=== PATIENT | female | born 1960 | race Caucasian/White ===

== ENCOUNTER → 2020-03-31 15:08 | Outpatient (CLI) | payer MEDICARE, MEDICAID, SELFPAY ==
[2020-03-31 17:42] LABS: Absolute Lymphocyte Count 1.35 X10^3/uL (0.83-4.51); Absolute Neutrophil Count 4.6 X10^3/uL (2.0-7.7); Eosinophil# 0.03 X10^3/uL; Eosinophils% 0.5 % (0-5); Hematocrit 43.5 % (37-47); Hemoglobin 12.9 g/dL (12.0-15.0); Lymphocyte # 1.35 X10^3/ul (4.0); Lymphocyte % 20.7 % (19-41); Mean Corp Hgb Conc 29.7 g/dL (32-36); Mean Corpuscular Hgb 24.2 pg (27.0-32.0); Mean Corpuscular Volume 81.5 fL (81-99); Mean Platelet Vol. 9.3 fl (6.2-12.0); Monocyte# 0.55 X10^3/uL; Monocyte% 8.4 % (0-10); NRBC Flagged by Analyzer 0 % (0-5); Neutrophil # 4.57 X10^3/uL (2.7-7.7); Neutrophil % 70.2 % (47-70); Platelet Count 269 K/mm3 (150-450); RBC Distribution Width CV 15.1 % (11.6-14.6); RBC Distribution Width SD 44.3 fl (35.1-43.9); Red Blood Count 5.34 M/mm3 (4.2-5.4); White Blood Count 6.5 K/mm3 (4.4-11.0)
[2020-03-31 18:23] LABS: ALB/GLOB Ratio 1.6 RATIO (0.9-2.4); AST(SGOT) 9 U/L (15-37); Alanine Aminotransfer ALT/SGPT < 6 U/L (13-56); Albumin, Serum 4.1 g/dL (3.2-5.0); Alkaline Phosphatase 65 U/L (45-117); Anion Gap 6 (5-15); BUN 29 mg/dL (7-18); BUN/Creat Ratio 27.4 RATIO (10-20); Chloride 106 mmol/L (98-107); Creatinine, Serum 1.06 mg/dL (0.55-1.02); EST Glomerular Filtration Rate 56 mL/min (>60); Est Glom Filt Rate - Afr Amer 68 mL/min (>60); Globulin 2.6 g/dL (2.2-4.2); Glucose 94 mg/dL (74-106); Potassium 4.2 mmol/L (3.5-5.1); Protein, Total 6.7 g/dL (6.4-8.2); Sodium Level 139 mmol/L (136-145)
== END ==
PROVIDERS: PCP Family Medicine; Visit Provider Family Medicine
DX: Z01.818 Encounter for other preprocedural examination (principal)
CPT/HCPCS: 36415; 80053; 85025

== ENCOUNTER 2020-04-07 06:02 | Day surgery (SDC) | payer MEDICARE, MEDICAID, SELFPAY ==
[2020-04-07] VITALS (8 sets, daily range): BP systolic 103–154; BP diastolic 61–89; PULSE 63–86; RESP 14–16; TEMP 36.1–36.6; O2SAT 97–100; BMI 30.7
[2020-04-07] MEDS: Lactated Ringers 1,000 ML 80 ML IV ×2 (07:09→12:11)
--- NOTE | 2020-04-07 07:30 | RAD_ITS ---
STUDY: X-RAY - RIGHT FOOT CLINICAL: Female, 59 years old. Bunion correction with fusion of 1st metatarsal, 2.38 mGy, 128.8 sec fluoro time TECHNIQUE: 2 view(s) of the foot. COMPARISON: None. FINDINGS: Intraoperative imaging provided for fusion at the first tarsal metatarsal joint as well as bunion surgery with the osteotomy and varus metallic clip fixation of the proximal phalanx of the great toe. RAD/Foot 2 Views IMPRESSION: Intraoperative imaging provided for fusion of the first tarsometatarsal joint as well as bunionectomy Electronically Signed: Erik Ward, at 11:06 EDT , Service support ,
--- NOTE | 2020-04-07 10:42 | DCINST_ITS ---
Discharge Diet: No Restrictions Discharge Activity: Use Walker, Use Crutches, - - use knee roller Weight Bearing Status: No weight bearing - right Keep extremity elevated above heart level: Right Leg Call your doctor if your incision/area has: Continuous Slow Oozing, Sudden Increased Bleeding, Increased Pain/ Swelling, Increased Redness, Foul Smelling Discharge, Swelling at the incision site Call your doctor if you observe: Fever of 101 or Higher, Calf discomfort, Uncontrolled pain Cleanse incision/area with: Keep Dressing Clean & Dry Allergies/Adverse Reactions: Allergies bee pollen Allergy (Verified 04/05/20 10:28) Anaphylaxis Penicillins Allergy (Verified 04/05/20 10:28) Swelling prochlorperazine [From Compazine] Allergy (Verified 04/05/20 10:28) NEEDS FOLLOW-UP Medications to take at Discharge Aripiprazole [Abilify] 15 mg PO DAILY 04/05/20 Carbidopa/Levodopa 25/100 [Sinemet] 2 tab PO 4X/DAY 04/05/20 Clonazepam [Klonopin] 1 mg PO QHS 04/05/20 Entacapone [Comtan] 200 mg PO DAILY 04/05/20 Fluoxetine [Prozac] 20 mg PO DAILY 04/05/20 Gabapentin [Neurontin] 300 mg PO 4X/DAY 04/05/20 Gemfibrozil [Lopid] 600 mg PO QHS 04/05/20 Hydrochlorothiazide [Hctz] 25 mg PO DAILY 04/05/20 Hydroxyzine HCl 25 mg PO PRN PRN 04/05/20 Lamotrigine [Lamictal] 100 mg PO BID 04/05/20 Naproxen [Naprosyn] 250 mg PO TID 04/05/20 Pimavanserin Tartrate [Nuplazid] 34 mg PO DAILY 04/05/20 Rasagiline Mesylate [Azilect] 0.5 mg PO QHS 04/05/20 Rotigotine [Neupro] 1 patch TRANSDERM. DAILY 04/05/20 Trihexyphenidyl HCl 1 mg PO TID 04/05/20 Hydrocodone/Acetaminophen [Hydrocodon-Acetaminophen 5-325] 1 tab PO Q6H PRN PRN 7 Days #28 tab 04/06/20 Ondansetron HCl [Zofran] 4 mg PO TID PRN PRN 4 Days #10 tab 04/06/20 Primary Care Physician: Ivanna Vences [Primary Care Provider] - Test Results: Test results from this visit will be discussed in further detail at your follow- up appointment, if applicable. Please Follow Up With: Vanessa Tamayo DPM When: 1 week. call [phone] sooner if questions or concerns Proposed Discharge Date: 04/07/20
--- NOTE | 2020-04-07 10:47 | OP.PCM_ITS ---
Problem List (1) Right foot pain Status: Acute (2) Hallux valgus (acquired), right foot Status: Acute Report of Operation Date of Procedure: 04/07/20 Pre-Operative Diagnosis: symptomatic hallux valgus, right Post-Operative Diagnosis: symptomatic hallux valgus, right Surgery/Procedure Performed:: Right foot first metatarsocuneiform arthrodesis bunionectomy correction with additional Hans osteotomy with internal fixation Description of Surgical Findings:: Hemostasis: Well-padded pneumatic right thigh tourniquet 305 mmHg, 120 minutes Materials: 1 plantar Arthrex Lapidus plate, one 3.5 cortical screw, three 3.5 locking screws, 2 cannulated 3.5 partially-threaded screws, 1 staple, 2-0 and 3- 0 Vicryl, 4-0 nylon Complications: None Specimens: None The patient tolerated the procedure and anesthesia well. She was transported to the PACU with vital signs stable and vascular status intact to the right lower extremity. Postoperative x-rays were obtained prior to leaving the operating room with correction of hallux abducto valgus deformity with internal fixation. There were no acute injuries noted. There is reduced lateral hallux deviation and intermetatarsal space. Postoperative orders were entered and she will be discharged home later today. renal medicine specialist: Rema Tamayo DPM Type of Anesthesia:: General, Local - Postoperative: One-to-one mixture of 1% lidocaine plain and 0.5% Marcaine plain administered in typical right ankle block fashion, 20 cc Specimen's removed: None Estimated Blood Loss (mL): <150 mL Description of Procedure: Indications: This 59-year-old female with significant past medical history of anxiety, depresion, hypertension, bipolar disorder, parkinson's disease has complained of progressive right foot pain in which she is unable to perform her daily activities and has significant pain. She has failed conservative care including shoe gear modification, NSAIDs, home exercise program, anti-inflammatory, and offloading. Preoperative x-rays demonstrate increased intermetatarsal angle, lateral hallux deviation, prominent first metatarsal head with hypertrophic changes. Clinically she has pain palpation to the bunion site and hypermobility of the first ray. She also previously had subsecond metatarsal head clinical pain which was relieved when she was able to tolerate wearing a toe spacer. It is noted she was not able to tolerate wearing a toe spacer for more than a couple of days or for long-term duration. The preoperative indication, planned procedure, possible benefits, risk, complications, and anticipated healing time management were discussed in detail with patient. She understands and elects to proceed with surgery at this time. Informed surgical consent and limb were signed. She understands risk and complications include but not limited to following: Pain, swelling, scarring, need for further surgery, hardware failure, recurrence, blood clot, allergic reaction, chronic pain, over or under correction, loss of limb, function, life, loss of sensation. She understands COVID-19 is a current situation and her pain is preventing her from performing her daily activities. She understands the inherent risks with the virus being present in the community and understands significant precautions are being taken to prevent communicable spread during her hospital session. She therefore elects to proceed forward with the procedure at this time. Preoperative clearance with Dr. Ho including history and physical exam was also reviewed. She also did not have any gross abnormalities with her preoperative diagnostic data including CBC, CMP, and EKG. I answered all of her questions. Procedure in detail: The patient was transported to the operating room via cart and placed on the operating table in the supine position. Final verification the patient, surgery, limb designation was performed via the timeout procedure. IV antibiotics were administered preoperatively. The anesthesia team initiated general anesthesia. A well padded right ankle tourniquet was placed in a well padded manner. The right lower extremity was prepped and draped in the usual aseptic manner. An Esmarch bandage was used to exsanguinate the right limb and surgery began the following: Attention was first directed at the medial aspect of the first metatarsal cuneiform articulation area in which a medial incision was made through the skin. Blunt dissection was performed down to the interface between the abductor hallucis muscle belly and plantar first metatarsal. Care was taken to identify, protect, and retract all neurovascular structures at this point and throughout the remainder of surgery. The desired interface was identified and carefully dissected. The first metatarsocuneiform articulation was identified clinically and confirmed with intraoperative fluoroscopy. A 15 blade, osteotomes, and curettes were used to denude the articular surface down to bleeding healthy subchondral bone in the remaining bone surfaces were mobilized to allow for correction. A k-wire and tenaculum were placed with the first metatarsal now with varus rotation correction achieved. Sesamoid reduction, decreased first intermetatarsal angle, and [id number] approximation was confirmed with intraoperative fluoroscopy. A plantar Arthrex Lapidus plate was fashioned and temporary held in place with wires and BB taks. The plate was secured distally prior to compression screw application. Care was taken to remove all temporary fixation while the compression was applied. An additional cannulated 3.5 screw was applied across the arthrodesis site as well with standard AO fixation technique to aid in solid fixation and deformity correction. Lastly, the plate was secured proximally and the unit was clinically and radiographically stressed and appeared to be stable as one solid unit with maintained deformity correction. The reduction was maintained and all screws and hardware placement maintained the proper placement and desired trajectory. Next, attention was directed to the first metatarsophalangeal joint in which the remaining bunion deformity was evaluated. The previous incision was extended distally. Again blunt dissection was performed and care was taken to avoid neurovascular structures. A lateral release was performed with release of the abductor hallucis tendon and superficial intermetatarsal ligament structures. The deformity at this level is now reducible at this time and additional release was not deemed necessary. The capsule was identified and this was incised with a 15 blade was carefully dissected off of the lower aspect of the first metatarsal head and proximal phalanx. A sagittal saw was used to resect the hypertrophic medial dorsal first metatarsal head eminence taking care to preserve the sagittal sulcus. This was successfully performed and smoothed. Next additional reflection of soft tissue off of the base of the proximal phalanx of the hallux was performed in preparation to perform an Hans bone cut which was also deemed clinically necessary at this time. The joint was smooth and gliding and there was no visualized evidence of osteochondral defect of the first metatarsal head. An Hans osteotomy was next performed via sagittal saw at the metaphyseal diaphyseal junction proximal phalanx cortex of the hallux. This was reduced and a staple was applied for fixation. This allowed additional correction of the hallux to be placed in a more rectus toe position; there was no longer pressure being applied to the adjacent second toe. Next, a capsulorrhaphy was used for tendon balancing procedure to maintain this hallux position. The tourniquet was deflated at this time and brisk capillary refill time was noted to all digits of the right foot. No pulsatile bleeding was noted. Deep layered closure was achieved to all surgical sites with Vicryl taking care to maintain a balanced tissue closure. The skin was next reapproximated with nylon with horizontal simple suture technique. Clinically the fixation was solid and the deformities were reduced. After procedure: The patient tolerated the procedure anesthesia well. She was transferred to the PACU with vital signs stable vascular status intact to the right lower extremity. She was transferred home with the assistance of her friend is also investigating this afternoon. She was advised to maintain a strict nonweigh tbearing status. Ice and elevate for pain inflammation control. She was advised to keep her splint and dressing clean, dry, and intact until follow-up next week. She has assistive devices to help her maintain a nonweightbearing status. Postoperative x-rays were reviewed as noted. She will follow-up with the [facility] next week. Vanessa Tamayo DPM, [facility] Grafts/Implants Used: arthrex - Complications none - Admit VTE Documentation VTE Present on Admission: No VTE Mechan Device Prophylaxis: SCD's VTE Pharm Prophylaxis ordered?: No Reason prophylaxis not ordered:: Procedure Not Indicated
[2020-04-07] MEDS: Bupivacaine Mpf 0.5% 30 ML VIAL (10:53)
--- NOTE | 2020-04-07 11:19 | RAD_ITS ---
STUDY: X-RAY - RIGHT FOOT CLINICAL: Female, 59 years old. Post op bunionectomy TECHNIQUE: 3 view(s) of the foot. COMPARISON: Comparison is made with prior intraoperative imaging. FINDINGS: Normal talus, calcaneus, and tarsal bones. Normal visualized subtalar, talonavicular, calcaneocuboid, tarsal and tarsometatarsal articulations. The patient is status post fusion of the first tarsometatarsal joint as well as bunionectomy with osteotomy of the midportion of the proximal phalanx of the great toe. Normal second through fifth metatarsophalangeal joints. Normal interphalangeal joints and phalanges of the lesser toes. Postoperative soft tissue changes. RAD/Foot min 3 Views IMPRESSION: Status post fusion at the first tarsal metatarsal joint as well as bunionectomy. Electronically Signed: Erik Ward, at 12:08 EDT , Service support ,
[2020-04-07] MEDS: Ketorolac 30 MG/ML Syringe IV (11:20)
== END 2020-04-07 13:16 | disposition home or self-care (01) ==
LOC: SDC 06:06 → AC 06:07
PROVIDERS: PCP Family Medicine; Referring Provider Podiatrist; Visit Provider Podiatrist
PROC: (CPT 28292; principal; 2020-04-07 07:15)
DX: M20.11 Hallux valgus (acquired), right foot (principal); Z87.891 Personal history of nicotine dependence; Z98.1 Arthrodesis status; F31.9 Bipolar disorder, unspecified; I10 Essential (primary) hypertension; G20 Parkinson's disease
CPT/HCPCS: 28298; 73620; 73630; 76000; C1713; J7120; J0330; J2405

== ENCOUNTER → 2020-06-09 08:48 | Outpatient (CLI) | payer MEDICARE, MEDICAID, SELFPAY ==
[2020-04-07 06:52] VITALS: BMI 30.7
--- NOTE | 2020-06-09 08:55 | ART_ITS ---
Reason For Study: PVD Procedure A bilateral lower extremity continuous wave Doppler with analog waveform analysis,segmental pressures,and ankle brachial indexes without exercise. Left Segmental Pressures Left brachial= 119mmHg. Left posterior tibial artery = 140mmHg. Left dorsalis pedis artery = 126mmHg. Left digit = 70 mmHg. The left dorsalis pedis waveforms are biphasic. The left posterior tibial artery waveforms are biphasic. Right Segmental Pressures Right brachial= 113mmHg. Right posterior tibial artery = 143mmHg. Right dorsalis pedis artery = 138mmHg. Right digit = 112 mmHg. The right posterior tibial artery waveforms are triphasic. The right dorsalis pedis waveforms are monophasic. Indices The right ankle brachial index by the posterior tibial artery is 1.2. The right ankle brachial index by the dorsalis pedis is 1.16. The right digital-brachial index is .94. The left posterior tibial artery index post exercise is 1.18. The left dorsalis pedis index post exercise is 1.06. The left digital-brachial index is .59. Interpretation Summary Triphasic and biphasic Doppler waveforms are noted at ankle level on the right. Biphasic Doppler waveforms are noted at ankle level on the left. Pulse-volume recording waveform amplitudes are diminished at ankle and digital level on the left, and otherwise satisfactory at all other levels bilaterally. Resting ankle-brachial indices are normal bilaterally. The right digital-brachial index is normal. The left digital-brachial index is mildly diminished. There is no evidence of significant arterial occlusive disease in the right lower extremity. Arterial flow appears normal at ankle level on the left. There is evidence of mild, distal, small- vessel arterial occlusive disease at digital level on the left. Ordering Physician: Vanessa Tamayo Referring Physician: CARMEN COLEMAN Performed By: [facility]
--- NOTE | 2020-06-09 08:55 | VDLE_ITS ---
Reason For Study: PVD RIGHT LEFT CFV is compressible, spontaneous, phasic, CFV is compressible, spontaneous, phasic, competent and demonstrates normal competent, and demonstrates normal augmentation. augmentation. FV is compressible, spontaneous, phasic, FV is compressible, spontaneous, phasic, competent and demonstrates normal competent and demonstrates normal augmentation. augmentation. POP V is compressible, spontaneous, phasic, POP V is compressible, spontaneous, phasic, competent and demonstrates normal competent and demonstrates normal augmentation. augmentation. T/P Trunk is compressible. T/P Trunk is compressible. PTV is compressible. PTV is compressible. RT PerV is compressible. LT PerV is compressible. SFJ is INCOMPETENT and measures .53 X .61 cm. SFJ is INCOMPETENT and measures .7 X .75 cm. GSV above knee is competent. GSV above knee is competent. GSV at knee measures .44 X .49 cm. GSV at knee measures .36 X .43 cm. GSV below knee is competent. GSV below knee is competent. SSV proximal calf is competent and SSV at junction is competent and measures .17 measures .23 X .22 cm. X .21 cm. Interpretation Summary Deep veins of the lower extremities are bilaterally patent and compressible segmentally. There is no evidence of deep vein thrombosis on either side. Valvular competence appears intact within the proximal deep venous systems bilaterally. The great saphenous veins appear bilaterally patent and compressible segmentally. Sapheno-femoral junctions are bilaterally incompetent . Valvular competence appears to be intact segmentally within the great saphenous veins bilaterally. Small saphenous veins are patent and competent bilaterally. Ordering Physician: Vanessa Tamayo Referring Physician: CARMEN COLEMAN Performed By: Reema Elam, RDCS, RVT
== END ==
PROVIDERS: PCP Family Medicine; Referring Provider Podiatrist; Visit Provider Podiatrist
DX: I73.89 Other specified peripheral vascular diseases (principal); L97.512 Non-pressure chronic ulcer of other part of right foot with fat layer exposed; I87.2 Venous insufficiency (chronic) (peripheral); R60.0 Localized edema
CPT/HCPCS: 93923; 93970

== ENCOUNTER → 2020-06-19 10:46 | Outpatient (CLI) | payer MEDICARE, MEDICAID, SELFPAY ==
[2020-04-07 06:52] VITALS: BMI 30.7
[2020-06-19 12:30] LABS: Absolute Lymphocyte Count 1.36 X10^3/uL (0.83-4.51); Absolute Neutrophil Count 4.7 X10^3/uL (2.0-7.7); Basophil# 0.01 X10^3/uL; Basophil% 0.1 % (0-1); Eosinophil# 0.36 X10^3/uL; Hematocrit 41.7 % (37-47); Hemoglobin 12.6 g/dL (12.0-15.0); Lymphocyte # 1.36 X10^3/ul (4.0); Mean Corp Hgb Conc 30.2 g/dL (32-36); Mean Corpuscular Hgb 24.9 pg (27.0-32.0); Mean Corpuscular Volume 82.4 fL (81-99); Mean Platelet Vol. 8.9 fl (6.2-12.0); Monocyte# 0.71 X10^3/uL; Monocyte% 9.9 % (0-10); NRBC Flagged by Analyzer 0 % (0-5); Neutrophil % 65.6 % (47-70); Platelet Count 311 K/mm3 (150-450); RBC Distribution Width CV 17.1 % (11.6-14.6); RBC Distribution Width SD 50.1 fl (35.1-43.9); Red Blood Count 5.06 M/mm3 (4.2-5.4); White Blood Count 7.2 K/mm3 (4.4-11.0)
[2020-06-19 12:33] LABS: Erythrocyte Sedimentation Rate 24 mm/hr (0-30)
[2020-06-19 12:38] LABS: ALB/GLOB Ratio 1.3 RATIO (0.9-2.4); AST(SGOT) 10 U/L (15-37); Alanine Aminotransfer ALT/SGPT 7 U/L (13-56); Albumin, Serum 3.9 g/dL (3.2-5.0); Alkaline Phosphatase 73 U/L (45-117); Anion Gap 4 (5-15); BUN 27 mg/dL (7-18); BUN/Creat Ratio 25.2 RATIO (10-20); CRP 4.41 mg/L (0.0-3.0); Calcium,Total 8.9 mg/dL (8.5-10.1); Chloride 102 mmol/L (98-107); Creatinine, Serum 1.07 mg/dL (0.55-1.02); EST Glomerular Filtration Rate 55 mL/min (>60); Est Glom Filt Rate - Afr Amer 67 mL/min (>60); Globulin 3.1 g/dL (2.2-4.2); Glucose 92 mg/dL (74-106); Potassium 3.4 mmol/L (3.5-5.1); Sodium Level 135 mmol/L (136-145)
[2020-06-21 14:04] LABS: Vitamin D,25 Hydroxy 31.7 ng/mL
== END ==
PROVIDERS: PCP Family Medicine; Referring Provider Podiatrist; Visit Provider Podiatrist
DX: L03.115 Cellulitis of right lower limb (principal)
CPT/HCPCS: 36415; 80053; 82306; 85025; 85652; 86140